=== PATIENT | female | born 1995 | race Caucasian/White ===

== ENCOUNTER 2017-02-02 06:43 | Inpatient (IN) | payer MEDICAID ==
[~2017-02-02] VITALS: Ht 157.6 cm; Wt 75.5 kg
[2017-03-24] VITALS (62 sets, daily range): BP systolic 60–146; BP diastolic 30–733; PULSE 57–118; TEMP 97.6–99
[2017-03-24 07:32] LABS: BASO % 0.1 % (0.0-2.0); EOS # 0.1 (0.0-0.7); EOS % 0.7 % (0-4.0); GRAN # 6.3 (1.4-6.5); GRAN % 65.4 % (42.2-75.2); HEMATOCRIT 37.8 % (37.0-47.0); HEMOGLOBIN 12.3 g/dl (12.5-16.0); LYMPH # 2.6 (1.2-3.4); LYMPH % 26.5 % (20.0-51.0); MEAN CELL VOLUME 78 fl (80.0-100.0); MEAN CORPUSCULAR HEMOGLOBIN 26 pg (27.0-31.0); MEAN CORPUSCULAR HGB CONC 33 g/dl (33.0-37.0); MEAN PLATELET VOLUME 11.7 fl (7.4-10.4); MONO # 0.7 (0.1-0.6); MONO % 6.8 % (1.7-9.3); PLATELET COUNT 189 K/mm3 (130-400); RED BLOOD COUNT 4.83 M/mm3 (4.10-5.30); REDCELL DISTRIBUTION WIDTH-CV 15.2 % (11.5-14.5); WHITE BLOOD COUNT 9.7 K/mm3 (4.8-10.8)
[2017-03-24] MEDS ORDERED: PRENATAL (07:38)
[2017-03-25] VITALS (14 sets, daily range): BP systolic 95–133; BP diastolic 55–88; PULSE 63–634; TEMP 97.4–99.8
[2017-03-25] MEDS ORDERED: PERCOCET 325 MG1 TA2 PO (10:35)
[2017-03-25] MEDS ORDERED: IBU600 MG PO (10:35)
[2017-03-26 08:15] VITALS: BP 124/78; PULSE 94; TEMP 98.3
[2017-03-26 16:27] VITALS: BP 120/80; PULSE 87; TEMP 98.2
[2017-03-26 19:00] VITALS: BP 124/72; PULSE 74; TEMP 98.6
[2017-03-27 08:00] VITALS: BP 118/80; PULSE 64; TEMP 97.9
== END 2017-03-27 12:20 | disposition home or self-care (01) | DRG 766 ==
LOC: LDRO 03-20 06:43 → EDSTATUS 03-20 07:32 → LDRO 03-20 16:34 → OB 03-24 07:12 → LDR 03-24 07:12 → OB 03-25 00:15
PROVIDERS: Obstetrics & Gynecology
PROC: 10D00Z1 Extraction of Products of Conception, Low, Open Approach (ICD-10-PCS; principal; 2017-03-24)
PROC: 3E033VJ Introduction of Other Hormone into Peripheral Vein, Percutaneous Approach (ICD-10-PCS; 2017-03-24)
DX: O48.0 Post-term pregnancy (principal); O62.1 Secondary uterine inertia; Z3A.40 40 weeks gestation of pregnancy; Z37.0 Single live birth
CPT/HCPCS: J0690; J1885; J2210; J2270; J2370; J2405; J2590; J7120